=== PATIENT | male | born 1950 | race Caucasian/White ===

== ENCOUNTER 2021-11-28 08:26 | Outpatient (CLI) | payer MEDICARE | END 2021-11-28 08:27 | disposition home or self-care (01) | LOC: CT 08:26 | PROVIDERS: ATTEND Internal Medicine Pulmonary Disease | DX: I26.99 Other pulmonary embolism without acute cor pulmonale (principal); J98.11 Atelectasis; J98.4 Other disorders of lung; N20.0 Calculus of kidney | CPT/HCPCS: 71275 ==

== ENCOUNTER 2022-11-25 11:10 | Outpatient (CLI) | payer MEDICARE | END 2022-11-25 11:11 | disposition home or self-care (01) | LOC: RAD 11:10 | PROVIDERS: ATTEND Internal Medicine Critical Care Medicine | DX: R06.00 Dyspnea, unspecified (principal) | CPT/HCPCS: 71046 ==

== ENCOUNTER 2024-01-18 12:09 | Outpatient (CLI) | payer MEDICARE | END 2024-01-18 12:10 | disposition home or self-care (01) | LOC: MRI 12:09 | PROVIDERS: ATTEND Specialist | DX: M47.26 Other spondylosis with radiculopathy, lumbar region (principal); M43.16 Spondylolisthesis, lumbar region; M48.061 Spinal stenosis, lumbar region without neurogenic claudication | CPT/HCPCS: 72148 ==